=== PATIENT | female | born 1995 | race Caucasian/White ===

== ENCOUNTER 2024-04-27 06:42 | Inpatient (IN) | payer MEDICAID ==
[2024-04-26 12:07] LABS: BASOPHILS % (AUTO) 0.5 % (0-1); EOSINOPHILS # (AUTO) 0.2 X10'3 (0-0.9); EOSINOPHILS % (AUTO) 3.4 % (0-6); LYMPHOCYTES % (AUTO) 34.5 % (21-51); MEAN CORPUSCULAR HEMOGLOBIN 30.4 PG (27.0-31.0); MEAN CORPUSCULAR HGB CONC 34.3 g/dL (33.0-36.5); MEAN CORPUSCULAR VOLUME 88.4 FL (78-98); MEAN PLATELET VOLUME 8.2 FL (7.4-10.4); MONOCYTES # (AUTO) 0.4 X10'3 (0-0.9); MONOCYTES % (AUTO) 7.4 % (2-12); NEUTROPHILS # (AUTO) 3.2 X10'3 (1.8-7.7); NEUTROPHILS % (AUTO) 54.2 % (42-75); PRE OP HEMATOCRIT 44.8 % (35.0-45.0); PRE OP HEMOGLOBIN 15.4 g/dL (12.0-16.0); PRE OP PLATELET COUNT 319 X10'3 (140-440); PRE OP WHITE BLOOD COUNT 5.9 10'3 (4.8-10.8); RED BLOOD COUNT 5.07 X10'6 (4.20-5.60); RED CELL DISTRIBUTION WIDTH 12.1 % (11.5-14.5)
[2024-04-26 12:18] LABS: PRE OP PROTIME 10.6 SECONDS (9.0-12.0)
[2024-04-26 12:21] LABS: HCG SERUM QL NEGATIVE
[2024-04-26 12:31] LABS: ALBUMIN 4.2 G/DL (3.4-5.0); ALBUMIN/GLOBULIN RATIO 1.1 (1.1-1.5); ALKALINE PHOSPHATASE 99 IU/L (46-116); BLOOD UREA NITROGEN 12 MG/DL (7-18); BUN/CREATININE RATIO 14.6 (10.0-20.0); CALCIUM 8.9 MG/DL (8.5-10.1); CHLORIDE 100 MMOL/L (99-107); CREATININE 0.82 MG/DL (0.40-0.90); PRE OP ALT 18 U/L (30-65); PRE OP ANION GAP 10 (8-16); PRE OP AST 11 U/L (10-37); PRE OP BILIRUB, TOTAL 0.4 MG/DL (0.0-1.0); PRE OP GLUCOSE 98 MG/DL (70-104); PRE OP POTASSIUM 4.2 MMOL/L (3.4-5.1); PRE OP SODIUM 139 MMOL/L (135-145); TOTAL PROTEIN 7.9 G/DL (6.4-8.2); eCRCL 92 ML/MIN; eGFR 82 ML/MIN
[~2024-04-27] VITALS: Ht 166.4 cm; Wt 72.6 kg
[2024-04-27] VITALS (19 sets, daily range): BP systolic 108–124; BP diastolic 62–83; PULSE 71–105; RESP 12–26; TEMP 97.8–98.7; O2SAT 96–99
[2024-04-27] MEDS: ceFAZolin 2gm in dextrose, iso 50 ML IV ONE (05:30)
[~2024-04-27 06:42] MED LIST: MAGN400T39 PO; MULT-1074 PO
[2024-04-27] MEDS ORDERED: BUPIVAcaine 2.5mg/ml inj 50ml vial (contains preservative) ONE (06:54)
[2024-04-27] MEDS ORDERED: BUPIVACAINE liposomal/PF 13.3 MG/ML vial IM ONE ×2 (06:54→08:18)
[2024-04-27] MEDS ORDERED: methylene blue (5mg/ml) 50mg/10ml ampul IV ONE (06:54)
[2024-04-27] MEDS: ringers solution, lacted 1,000 ML IV SCH ×2 (07:20→08:40)
[2024-04-27] MEDS: famotidine 20mg tablet PO ONE (07:20)
[2024-04-27] MEDS ORDERED: BUPIVAcaine 0.5% inj/PF 30 ML ONE (08:18)
[2024-04-27] MEDS ORDERED: fentaNYL/PF 50MCG/1 ML 2ML syringe ONE ×2 (08:29→09:49)
[2024-04-27] MEDS ORDERED: midazolam 1 mg/ML 2ml injection ONE (08:31)
[2024-04-27] MEDS ORDERED: propofol inj 20 ML IV ONE (08:31)
[2024-04-27] MEDS ORDERED: LIDOcaine 2% (20mg/ml) 5ml vial ONE (08:31)
[2024-04-27] MEDS ORDERED: ondansetron/PF 4mg/2ml inj ONE (08:32)
[2024-04-27] MEDS ORDERED: acetaminophen 1,000mg/100ml IV 100 ML IV ONE (08:32)
[2024-04-27] MEDS ORDERED: dexamethasone sod phosphate 4mg/ml inj. ONE (08:32)
[2024-04-27] MEDS ORDERED: labetalol 20mg/4ml (5mg/ml) syringe IV PRN (08:40)
[2024-04-27] MEDS ORDERED: fentaNYL/PF 50MCG/1 ML 2ML syringe IV PRN ×2 (08:40)
[2024-04-27] MEDS ORDERED: ondansetron/PF 4mg/2ml inj IV PRN (08:40)
[2024-04-27] MEDS ORDERED: hydrALAZINE 20mg/ml inj. IV PRN (08:40)
[2024-04-27] MEDS ORDERED: morphine 2 MG/ML inj. syringe IV PRN ×2 (08:40→11:50)
[2024-04-27] MEDS ORDERED: sevoflurane 250ml liquid IH ONE (08:41)
[2024-04-27] MEDS: methylene blue (5mg/ml) 50mg/10ml ampul IV ONE (09:36)
[2024-04-27] MEDS: morphine 4 MG/ML inj SYRINge IV PRN (11:49)
[2024-04-27] MEDS: HYDROcodone/acetaminophen 5mg/325mg tablet PO PRN (12:48)
[2024-04-27] MEDS: ceFAZolin 2gm in dextrose, iso 50 ML IV SCH (16:48)
[2024-04-27] MEDS: ondansetron/PF 4mg/2ml inj IV PRN (20:35)
[2024-04-28 02:00] VITALS: BP 117/78; PULSE 79; RESP 16; TEMP 98.3; O2SAT 97
[2024-04-28 04:50] LABS: BASOPHILS % (AUTO) 0.1 % (0-1); EOSINOPHILS % (AUTO) 0.2 % (0-6); HEMATOCRIT 41.5 % (35.0-45.0); HEMOGLOBIN 13.8 g/dl (12.0-16.0); LYMPHOCYTES # (AUTO) 1.8 X10'3 (1.1-4.8); LYMPHOCYTES % (AUTO) 14.4 % (21-51); MEAN CORPUSCULAR HEMOGLOBIN 29.5 PG (27.0-31.0); MEAN CORPUSCULAR HGB CONC 33.2 g/dL (33.0-36.5); MEAN PLATELET VOLUME 8.3 FL (7.4-10.4); MONOCYTES # (AUTO) 0.9 X10'3 (0-0.9); MONOCYTES % (AUTO) 7.6 % (2-12); NEUTROPHILS # (AUTO) 9.5 X10'3 (1.8-7.7); NEUTROPHILS % (AUTO) 77.7 % (42-75); PLATELET COUNT 309 X10'3 (140-440); RED BLOOD COUNT 4.66 X10'6 (4.20-5.60); RED CELL DISTRIBUTION WIDTH 12.8 % (11.5-14.5); WHITE BLOOD COUNT 12.2 X10'3 (4.5-11.0)
[2024-04-28 07:12] VITALS: BP 107/78; PULSE 75; RESP 14; TEMP 97.8; O2SAT 94
[2024-04-28 08:05] VITALS: RESP 14; O2SAT 94
[2024-04-28 12:57] VITALS: RESP 16
== END 2024-04-28 13:20 | disposition home or self-care (01) | DRG 363 ==
LOC: PAS 06:42 → PAS IN 11:47 → OBSVTOIN 11:47 → SUR 3N 12:30
PROVIDERS: ADMIT Surgery; ATTEND Surgery
PROC: 3E0T3BZ Introduction of Anesthetic Agent into Peripheral Nerves and Plexi, Percutaneous Approach (ICD-10-PCS; 2024-04-27)
PROC: 07B50ZX Excision of Right Axillary Lymphatic, Open Approach, Diagnostic (ICD-10-PCS; 2024-04-27)
PROC: 0HBT0ZZ Excision of Right Breast, Open Approach (ICD-10-PCS; principal; 2024-04-27 08:41)
DX: D05.11 Intraductal carcinoma in situ of right breast (principal)
CPT/HCPCS: 36415; 80053; 82948; 84703; 85025; 85610; 85730; 86885; 86900; 86901; 87081; A4215; A4618; A6253; A6258; A6449; A7000; C9250; C9290; G0378; J0131; J0690; J1100; J2003; J2250; J2270; J2405; J2704; J3010; J3490; J7120; Q9968